=== PATIENT | female | born 1955 | race Caucasian/White ===

== ENCOUNTER → 2018-06-27 | Outpatient (CLI) | payer BC, OTHER ==
[~2018-06-27] MED LIST: BIOFLEX TABLET1 EACH PO; DILANTIN 100 M100 MG PO; DILANTIN100 MG PO; GABAPENTIN100 MG PO; IBUPROFEN 800800 M1 PO; NEURONTIN 400400 M1 PO
== END ==
LOC: CAT 09:26
DX: S06.0X1D Concussion with loss of consciousness of 30 minutes or less, subsequent encounter (principal); G93.89 Other specified disorders of brain; D32.9 Benign neoplasm of meninges, unspecified; X58.XXXD Exposure to other specified factors, subsequent encounter

== ENCOUNTER 2019-03-30 22:29 | Inpatient (IN) | payer BC, OTHER ==
[~2019-03-30] VITALS: Ht 167.6 cm; Wt 111.6 kg
[2019-03-30 22:32] VITALS: BP 129/81
--- NOTE | 2019-03-31 00:50 | NUR ---
Molasses enema administeredper Dr lu.
[2019-03-31 01:56] LABS: BASOPHILS 0.3 % (0.0-2.0); EOSINOPHILS 0.8 % (0.0-3.0); HEMATOCRIT 37.3 % (37.0-47.0); HEMOGLOBIN 12.5 gm/dL (12.0-15.0); LYMPHOCYTES 11.2 % (24.0-44.0); MCH 31.2 pg (26.0-34.0); MCHC 33.5 g/dL (28.0-37.0); MCV 93.1 fL (80.0-100.0); MONOCYTES 7.1 % (1.0-8.0); PLATELET COUNT 407 thou/uL (150-400); POLYS 80.6 % (36.0-66.0); RBC 4.01 mil/uL (4.20-5.00); RDW 13.7 % (10.5-14.5); WBC 16.2 thou/uL (4.0-11.0)
[2019-03-31 02:10] LABS: CALCIUM 8.8 mg/dL (8.5-10.1); CREATININE 0.8 mg/dL (0.6-1.0); POTASSIUM 4.1 mmol/L (3.5-5.1)
[2019-03-31 02:16] LABS: ALBUMIN 2.9 g/dL (3.4-5.0); TOTAL BILIRUBIN 0.3 mg/dL (<0.1-1.0); TOTAL PROTEIN 7.1 g/dL (6.4-8.2)
--- NOTE | 2019-03-31 02:51 | NUR ---
PT OFF THE UNIT TO RADIOLOGY DEPT.
--- NOTE | 2019-03-31 03:05 | NUR ---
PT BACK FROM RADIOLOOGY.
[2019-03-31 04:44] VITALS: BP 159/104
[2019-03-31] MEDS ORDERED: ENOXAPARIN100 MG/11 SUBQ (04:56)
[2019-03-31] MEDS ORDERED: OXYCODONE HCL 55 MG PO (04:58)
[2019-03-31] MEDS ORDERED: COLACE100 MG PO (04:59)
[2019-03-31] MEDS ORDERED: PEPCID20 MG PO (04:59)
[2019-03-31 05:03] VITALS: BP 158/96
[2019-03-31 05:50] VITALS: BP 134/96
--- NOTE | 2019-03-31 06:50 | NUR ---
ASSUMED CARE OF PT AT 0545HRS. PT IS A0X4 BUT LETS NEEDS BE KNOWN. PT WAS ORIENTED ON THE UNIT AND THE FLOOR. SPOUSE IS AT BEDSIDE. ADMISSION ORDERS STARED. NO S/S OF ACUTE DISTRESS. WILL CONTINUE TO MONITOR.
[2019-03-31 07:54] VITALS: BP 133/78
--- NOTE | 2019-03-31 13:03 | NUR ---
PT ADMITTED RELATED TO CONSTIPATION. CM REVIEWED CHART AND SPOKE WITH CARE TEAM. CM MET WITH PT AT BEDSIDE THIS DAY. PT IS A&O X4. CM ROLE INTRODUCED. PT INDICATED SHE LIVES IN A HOUSE WITH HER SPOUSE WITH 3 STEPS TO ENTER AND NO STEPS INSIDE. PT INIDCATED SHE HAS USED A [employer] TP ASSIST WITH [employer] WHOLESALE ACCOUNT MANAGER. 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 CM TO FOLLOW INDICATED WITH DC PLANNING.
--- NOTE | 2019-03-31 13:09 | NUR ---
discharge planning: dp sent updates to [facility].
--- NOTE | 2019-03-31 15:45 | NUR ---
Nutrition: Pt admitted with constipation x 1 week. Chart reviewed. Recent TKA constipation related to narcotics. Not responding to multiple regimens to promote BM and will need flex sig with decompression per GI. Prior fair appetite and no weight change. BMI 39.2, obesity class 2. RD available to discuss adequate fiber in diet if applicable when appropriate. Pt appears to be in significant discomfort at present. Tolerating clear liquids. Will monitor for diet advance.
--- NOTE | 2019-03-31 19:49 | NUR ---
NEW ADMISSTION ASSUMED CARE 0700. ALERT X4, FROM HOME, RECENT TKA ON 03/19 AT [facility] WITH DRESSING IN PLACE. UP WITH WALKER 1 ASSIST. PT AND OT ROUND WITH PATIENT TODAY. BOWEL TX GIVEN TODAY NO BM NOTED AT THIS TIME, NIGHT NURSE TO TR PATIENT WITH ENEMA. ADMISSION ASSESMENT COMPLETED. ORIENTED TO ROOM. TOLERATING FULL LIQUID DIET, TREAT ABD DISCOMFORT WITH ZOFRAN. FALL PRECAUTIONS IN PLACE, CALLS APPROPRIATELY. HOME MED IN IV BIN WITH PT FORM IN CHART.
[2019-03-31 20:04] VITALS: BP 128/76
[2019-03-31] MEDS ORDERED: CELEBREX 200 M200 M1 PO (22:23)
--- NOTE | 2019-04-01 02:46 | NUR ---
ASSUMED CARE OF PT AT 1900HRS. PT IS AOX4 AND LETS NEEDS BE KNOWN. PT WAS GIVEN ENEMA THIS SHIFT TO FACILITATE BM AND PT WAS ABLE TO PRODUCE ONE MEDIUM AND ONE SMALL BM. PT REPORTED SOME PAIN AND WAS GIVEN PRN PAIN MEDS. PT WAS ABLE TO GET COMFORTABLE AND SLEEP THIS SHIFT. FALL PRECAUTION IN PLACE. IS AT BEDSIDE. NO S/S OF ACUTE DISTRESS. WILL CONTINUE TO MONITOR.
[2019-04-01 05:00] VITALS: BP 144/91
[2019-04-01 05:50] LABS: HEMATOCRIT 36.5 % (37.0-47.0); HEMOGLOBIN 12.3 gm/dL (12.0-15.0); MCH 31.2 pg (26.0-34.0); MCHC 33.8 g/dL (28.0-37.0); MCV 92.4 fL (80.0-100.0); RBC 3.95 mil/uL (4.20-5.00); RDW 13.8 % (10.5-14.5); WBC 13.8 thou/uL (4.0-11.0)
[2019-04-01 05:57] LABS: CALCIUM 8.6 mg/dL (8.5-10.1); CREATININE 0.8 mg/dL (0.6-1.0); MAGNESIUM 3.3 mg/dL (1.8-2.4); POTASSIUM 4.5 mmol/L (3.5-5.1)
[2019-04-01 08:44] VITALS: BP 118/77
[2019-04-01 16:18] VITALS: BP 114/74
--- NOTE | 2019-04-01 18:39 | NUR ---
ASSUMED CARE 0700. SEVERAL BM STOOLS THROUGH OUT THE SHIFT. SHOWER GIVEN, TOLERATING FULL LIQUIDS. PROGRESSING TOWARDS GOALS. LIKELY DC TOMORROW.
[2019-04-01 20:53] VITALS: BP 134/78
[2019-04-02 03:56] VITALS: BP 137/79
[2019-04-02 05:32] LABS: CALCIUM 8.4 mg/dL (8.5-10.1); CREATININE 0.7 mg/dL (0.6-1.0); POTASSIUM 4.7 mmol/L (3.5-5.1)
--- NOTE | 2019-04-02 06:40 | NUR ---
Assumed care at 1845. Pt resting in bed. AOX4. VSS. is at bedside. Pt requested to have diet orders changed will notify MD. No identified needs at the moment. Call light within reach. Will continue to monitor.
[2019-04-02 08:13] VITALS: BP 113/63
--- NOTE | 2019-04-02 16:19 | NUR ---
WOUND CARE CONSULT; INTACT INCISION REPORTEDLY 2 WEEKS OLD. STFF RN OBTAINED AN ORDER FOR WASHING MACHINE ASSEMBLER TO ASSESS. THE INCISION IS INTACT RADHA WITH NO S/S OF INFECTION. NO DRAINAGE NO ERYTHEMA OR SIGNS OF DEHISCIENCE. RECOMMENDATION; [employer] AND SECURE WITH AN SANDRA WRAP. DISCUSSED WITH RN
[2019-04-02 17:24] VITALS: BP 130/74
--- NOTE | 2019-04-02 18:07 | NUR ---
PT STABLE THROUGHOUT SHIFT. PT HAD DRESSING ON KNEE CHANGED BY WOUND CARE. PT RESTING COMFORTABLY, NO COMPLAINTS.
[2019-04-02 19:47] VITALS: BP 118/76
[2019-04-03 03:01] VITALS: BP 127/78
--- NOTE | 2019-04-03 07:12 | NUR ---
progress pt up ad juan ramon pain controlled with tylenol. denies nausea, bs active and pt had 4 bms yesterday denies nausea tolerating diet, iv infiltrated so meds switched to po continue poc.
[2019-04-03] MEDS ORDERED: LEVAQUIN 500 M500 M2 PO (13:07)
[2019-04-03] MEDS ORDERED: FLAGYL 250 MG250 MG PO (13:07)
[2019-04-03] MEDS ORDERED: MIRALAX17 GM PO (13:07)
[2019-04-03] MEDS ORDERED: REGLAN 5 MG TAB5 MG PO (13:07)
[2019-04-03] MEDS ORDERED: TYLENOL325 MG PO (13:07)
[2019-04-03 13:19] VITALS: BP 127/78
[2019-04-03 13:45] VITALS: BP 127/78
--- NOTE | 2019-04-03 14:24 | NUR ---
PT STABLE THROUGHOUT SHIFT. PT DISCHARGED HOME WITH HOME HEALTH. PT GIVEN DC INSTRUCTIONS, RX'S AND RX EDUCATION. PT LEFT UNIT VIA WHEELCHAIR TO PRIVATE VEHICLE.
--- NOTE | 2019-04-04 13:05 | NUR ---
PATIENT DISCHARGED TO HOME 04/03/19. HOME HEALTH ORDERS AND SUMMARY FAXED TO [facility] 04/04/19. UNIT SW AWARE.
== END 2019-04-03 15:44 | disposition home health service (06) | DRG 392 ==
LOC: ER 22:29 → 4W 03-31 04:22 → EROBS 03-31 04:22 → 4W 03-31 05:42 → ENTRNSPT 04-03 14:26 → EDTRNSPTSTS 04-03 14:44 → 4W 04-03 15:44
PROVIDERS: Emergency Medicine; Hospitalist; ADMIT Internal Medicine
DX: K52.9 Noninfective gastroenteritis and colitis, unspecified (principal); K56.7 Ileus, unspecified; K62.5 Hemorrhage of anus and rectum; K56.609 Unspecified intestinal obstruction, unspecified as to partial versus complete obstruction; G40.909 Epilepsy, unspecified, not intractable, without status epilepticus; G47.33 Obstructive sleep apnea (adult) (pediatric); K56.41 Fecal impaction; M25.569 Pain in unspecified knee; E66.9 Obesity, unspecified; T40.605A Adverse effect of unspecified narcotics, initial encounter; Z96.651 Presence of right artificial knee joint; K64.9 Unspecified hemorrhoids; Z79.899 Other long term (current) drug therapy; Z88.6 Allergy status to analgesic agent; Z88.1 Allergy status to other antibiotic agents; Z86.718 Personal history of other venous thrombosis and embolism; Z91.040 Latex allergy status; Z68.39 Body mass index [BMI] 39.0-39.9, adult; Y92.89 Other specified places as the place of occurrence of the external cause
CPT/HCPCS: 10040